=== PATIENT | male | born 1990 | race Caucasian/White ===

== ENCOUNTER 2017-12-17 07:10 | Emergency (ER) | payer OTHER ==
--- NOTE | 2017-12-17 07:14 | ED Physician Documentation ---
General Adult - HISTORIAN Historian: patient - HPI Stated Complaint: right hand pain middle and ring finger Chief Complaint: Hand Injury Onset: hours (1) Timing: still present Severity: mild Further Comments: yes (He states he was trying to change the window screen and the window glass fell on his hand and he has pain in his ring and middle finger. No other injury) - ROS CONST: no problems - PAST HX Past History: none Immunizations: UTD Allergies/Adverse Reactions: Allergies Allergy/AdvReac Type Severity Reaction Status Date / Time No Known Allergies Allergy Verified 12/17/17 07:26 Home Medications: Ambulatory Orders Medication Instructions Recorded NK 12/17/17 - SOCIAL HX Smoking History: cigarettes Alcohol Use: none Drug Use: none - FAMILY HX Family History: No - REVIEWED ASSESSMENTS Nursing Assessment Reviewed: Yes Vitals Reviewed: Yes Procedures Wound Location: upper extremity (right hand middle finger ) Wound Repaired With: Dermabond (less than 2 cm lac superficial with steri strip x 2 placed ) ED Results Lab/Radiology - Radiology Radiology Impressions: Examination: Plain film right hand History: Pt states he dropped windows on 3rd and 4th digits today. (Hx) Comparison exams: None available Findings: 3 views of the right hand demonstrate normal cortical margins. No fracture. No dislocation. No soft tissue abnormality. Impression: No acute osseous abnormality Electronically signed on Dec 17, 2017 8:25:40 AM DAY CARE SUPERVISOR by: Cb Mayorga General Adult Physical Exam - PHYSICAL EXAM GENERAL APPEARANCE: no distress EENT: eye inspection normal NECK: normal inspection RESPIRATORY: no resp distress, chest non-tender, breath sounds normal CVS: reg rate & rhythm, heart sounds normal, equal pulses, no murmur ABDOMEN: soft, no distension BACK: normal inspection, no CVA tenderness SKIN: warm/dry, normal color, other (right hand middle and ring finger with small lacerations at the distal end - FROM. + pulses + sensation ) EXTREMITIES: non-tender, normal range of motion NEURO: oriented X3, CN's nml as tested, motor nml, sensation nml, mood/affect nml Discharge Clincal Impression: Hand pain, right Referrals: Primary Doctor,No [Primary Care Provider] - 2 Days Comments: 1. Keep area clean and dry 2. Notify PCP of any increase in pain, swelling, redness or drainage 3. Keep dressing on for 24 hours 4. Return to ER for any concerns 5. OTC meds as directed for pain Condition: Stable Disposition: 01 HOME, SELF-CARE Decision to Admit: NO Date of Decison to Admit: 12/17/17 Decision Time: 08:37
[2017-12-17 07:26] VITALS: BP 118/80
--- NOTE | 2017-12-17 08:44 | Diagnostic Imaging Report ---
[facility] [facility] [address] [facility] [address] [address] Report Submission Date: Dec 17, 2017 8:25:40 AM BUCKET CHUCKER Patient Study Name: FAWN JACKMAN Date: Dec 17, 2017 7:35:19 AM BUCKET CHUCKER Modality Type: DX Gender: M Description: UPPER EXTREMITY : 89 Institution: [facility] Physician: [facility] [facility] Examination: Plain film right hand History: Pt states he dropped windows on 3rd and 4th digits today. (Hx) Comparison exams: None available Findings: 3 views of the right hand demonstrate normal cortical margins. No fracture. No dislocation. No soft tissue abnormality. Impression: No acute osseous abnormality Electronically signed on Dec 17, 2017 8:25:40 AM BUCKET CHUCKER by: Cb CHURCH
== END 2017-12-17 08:40 | disposition home or self-care (01) ==
LOC: ED 07:10
DX: M79.641 Pain in right hand (principal); S61.212A Laceration without foreign body of right middle finger without damage to nail, initial encounter; W26.8XXA Contact with other sharp object(s), not elsewhere classified, initial encounter; Y92.9 Unspecified place or not applicable; Y93.9 Activity, unspecified; Y99.9 Unspecified external cause status
CPT/HCPCS: 12001; 73130; 99283